=== PATIENT | male | born 1990 | race Hispanic/Latino ===

== ENCOUNTER 2018-10-12 13:59 | Emergency (ER) | payer SELFPAY ==
[~2018-10-12] VITALS: Ht 165.1 cm; Wt 75.0 kg
[2018-10-12] MEDS ORDERED: ERYTHROMYCIN O3.5 GM OS (15:09)
[2018-10-12 15:14] VITALS: BP 129/74
== END 2018-10-12 15:14 | disposition home or self-care (01) | DRG 125 ==
LOC: ED 13:59
DX: S05.02XA Injury of conjunctiva and corneal abrasion without foreign body, left eye, initial encounter (principal); X58.XXXA Exposure to other specified factors, initial encounter; Y93.89 Activity, other specified; Y92.89 Other specified places as the place of occurrence of the external cause; Y99.0 Civilian activity done for income or pay

== ENCOUNTER 2024-11-25 22:45 | Emergency (ER) | payer SELFPAY ==
[~2024-11-25] VITALS: Ht 165.1 cm; Wt 84.2 kg
[~2024-11-25 22:45] MED LIST: ERYTHROMYCIN O3.5 GM OS
[2024-11-25 22:59] VITALS: BP 113/46
[2024-11-25 23:00] VITALS: BP 118/55
[2024-11-25] MEDS ORDERED: ONDANSETRON HCl 4 MG/2 ML SDV IV ONE ×2 (23:00→23:55)
[2024-11-25] MEDS ORDERED: MORPHINE SULFATE 4 MG/ML VIAL IV ONE (23:00)
[2024-11-25] MEDS ORDERED: Pantoprazole Sodium 40 MG VIAL (Protonix) IV ONE (23:00)
[2024-11-25 23:18] LABS: BASO% 0.4 % (0-3); EOS% 0.7 % (0-8); HEMATOCRIT 43.5 % (39.0-50.0); IMMATURE GRANULOCYTES 0.2 % (0.0-5.0); LYMPH% 20.2 % (15-41); MEAN CELL VOLUME 90.1 fL CALC (80.0-100.0); MEAN CORPUSCULAR HGB 31.1 pG CALC (26.0-32.0); MEAN CORPUSCULAR HGB CONC 34.5 g/dL CAL (32.0-36.0); MONO% 7.4 % (2-13); NEUT# 9.46 thou/uL (1.82-7.42); NEUT% 71.1 % (42-76); RED BLOOD COUNT 4.83 mill/uL (4.70-6.10)
[2024-11-25 23:27] LABS: ALBUMIN 4.8 g/dL (3.2-5.0); BILIRUBIN, TOTAL 0.8 mg/dL (0.2-1.3); CREATININE 0.7 mg/dL (0.7-1.3); POTASSIUM 3.5 mmol/l (3.5-5.1); TOTAL PROTEIN 8.3 g/dL (6.3-8.2)
[2024-11-25 23:31] VITALS: BP 99/61
[2024-11-26] VITALS (10 sets, daily range): BP systolic 96–120; BP diastolic 62–79
[2024-11-26] MEDS ORDERED: PIPERACILLIN Sodium-Tazobactam 3.375 GM in SODIUM CHLORIDE 0.9% 100 ML IV ONE (00:10)
[2024-11-26] MEDS ORDERED: MORPHINE SULFATE 4 MG/ML VIAL IV ONE (00:15)
[2024-11-26 00:22] LABS: URINE BILIRUBIN - DIPSTICK Negative (NEGATIVE); URINE BLOOD DIPSTICK Negative (NEGATIVE); URINE GLUCOSE - DIPSTICK Negative (NEGATIVE); URINE KETONE Trace mg/dL (NEGATIVE); URINE LEUK ESTERASE Negative (NEGATIVE); URINE NITRITE - DIPSTICK Negative (Negative); URINE PH 6.5 (4.5-8.0); URINE PROTEIN - DIPSTICK Negative (NEG-TRACE); URINE UROBILINOGEN - DIPSTICK 0.2 E.U./dL (0.2)
[2024-11-26 00:28] LABS: URINE COLOR Yellow
[2024-11-26] MEDS ORDERED: ONDANSETRON HCl 4 MG/2 ML SDV IV ONE (02:20)
[2024-11-26] MEDS ORDERED: HYDROmorphone HCL 2 MG/AMP IV ONE (02:20)
== END 2024-11-26 02:20 | disposition short-term general hospital (02) | DRG 395 ==
LOC: ED 22:45
PROVIDERS: Family Medicine
DX: K35.80 Unspecified acute appendicitis (principal)
CPT/HCPCS: J1171; J2405; J2470; J2543